=== PATIENT | female | born 1980 | race Caucasian/White ===

== ENCOUNTER 2016-05-20 09:30 | Emergency (ER) | payer OTHER ==
[2016-05-20 10:01] VITALS: BP 137/89
--- NOTE | 2016-05-20 10:33 | UC ---
Respiratory Complaint HPI - HPI Summary HPI Summary: coughing non-stop. Was ill with "cold" for about 3 weeks, felt like she was starting to get better, then a week ago got worse. Now with fever, aches, chills , mild ST, sinus congestion and pressure - History of Current Complaint Chief Complaint: UCRespiratory Stated Complaint: COUGH FEVER SINUS ISSUE Time Seen by Provider: 05/20/16 10:15 Hx Obtained From: Patient Hx Last Menstrual Period: 2.5 weeks ago Onset/Duration: Sudden Onset Timing: Constant Severity Initially: Mild Severity Currently: Moderate Character: Cough: Productive - occasional yellow phlegm, mainly cough is dry Aggravating Factors: Exertion, Recumbent Position Alleviating Factors: Nothing Associated Signs And Symptoms: Positive: Fever, Chills, Pleuritic Chest Pain, URI, Nasal Congestion, Hoarseness, Sinus Discomfort. Negative: Wheezing, Hemoptysis, Dizziness, Calf Pain - Risk Factors Pulmonary Embolism Risk Factors: Negative Cardiac Risk Factors: Negative Pseudomonas Risk Factors: Negative Tuberculosis Risk Factors: Negative - Allergies/Home Medications Allergies/Adverse Reactions: Allergies Allergy/AdvReac Type Severity Reaction Status Date / Time SHELLFISH Allergy Hives Uncoded 05/20/16 10:01 Home Medications: Home Medications ALPRAZolam TAB* [Xanax TAB*] 1 tab PO PRN 05/20/16 [History] Aleve PRN 05/20/16 [History] Amphetamine MIXED SALT TAB* [Adderall TAB*] 10 mg PO BID 05/20/16 [History Confirmed 05/20/16] Ibuprofen TAB* [Advil TAB*] 400 mg PO PRN 05/20/16 [History] Mucinex 05/20/16 [History] Sertraline* [Zoloft*] 1 tab PO BEDTIME 05/20/16 [History Confirmed 05/20/16] traZODone TAB* [Desyrel TAB*] 1 tab PO BEDTIME 05/20/16 [History Confirmed 05/20] PMH/Surg Hx/FS Hx/Imm Hx Respiratory History Of: Reports: Asthma - as a child Psychological History Of: Reports: Anxiety, Depression - Surgical History Surgical History: None - Family History Known Family History: Positive: Cardiac Disease - mother Family History: FHx of [place] - maternal - Social History Occupation: Employed Full-time Lives: With Family Alcohol Use: Weekly Alcohol Amount: couple times a week Substance Use Type: None Smoking Status (MU): Light Every Day Tobacco Smoker Amount Used/How Often: 2-3 cigs per day Length of Time of Smoking/Using Tobacco: 22 years Household Exposure Type: Cigarettes Review of Systems Constitutional: Negative Skin: Negative Eyes: Negative ENT: Sore Throat, Nasal Discharge Respiratory: Cough Cardiovascular: Negative Gastrointestinal: Negative Genitourinary: Negative Motor: Negative Neurovascular: Negative Musculoskeletal: Myalgia Neurological: Headache Psychological: Negative All Other Systems Reviewed And Are Negative: Yes Physical Exam Triage Information Reviewed: Yes Appearance: Well-Appearing, No Pain Distress, Well-Nourished Vital Signs: Initial Vital Signs Temp 98.3 F 05/20/16 09:52 Pulse 96 05/20/16 09:52 Resp 18 05/20/16 09:52 BP 137/89 05/20/16 09:52 Pulse Ox 98 05/20/16 09:52 Vital Signs Reviewed: Yes Eye Exam: Normal ENT: Positive: Pharynx normal, Nasal congestion, Nasal drainage, TMs normal, Muffled/hoarse voice - hoarse Neck exam: Normal Respiratory Exam: Normal Respiratory: Positive: Lungs clear, Normal breath sounds, No respiratory distress, No accessory muscle use, Other: - very frequent harsh, dry cough. Can' t take a breath without coughing Cardiovascular Exam: Normal Musculoskeletal Exam: Normal Neurological Exam: Normal Psychological Exam: Normal Skin Exam: Normal UC Diagnostic Evaluation - Laboratory O2 Sat by Pulse Oximetry: 98 Respiratory Course/Dx - Differential Dx/Diagnosis Differential Diagnosis/HQI/PQRI: Bronchitis, Lower Resp Infection, Sinusitis Provider Diagnoses: bronchitis Discharge - Discharge Plan Condition: Stable Disposition: HOME Prescriptions: Albuterol HFA INHALER* [Ventolin HFA Inhaler*] 1 - 2 puff INH Q4H PRN #1 mdi PRN Reason: cough, wheezing Clarithromycin TAB* [Biaxin TAB*] 500 mg PO BID #20 tab Hydrocodone W/ Homatropine [Hydromet 5-1.5 mg/5Ml] 1 teasp PO TID PRN #100 ml MDD 15ml PRN Reason: Cough Patient Education Materials: Acute Bronchitis (ED) Forms: *Work Release Referrals: No Primary Care Phys,NOPCP [Primary Care Provider] -
== END 2016-05-20 10:39 | disposition home or self-care (01) ==
LOC: UCEAST 09:30
DX: J40 Bronchitis, not specified as acute or chronic (principal); F41.9 Anxiety disorder, unspecified; F32.9 Major depressive disorder, single episode, unspecified; F17.210 Nicotine dependence, cigarettes, uncomplicated
CPT/HCPCS: 99212; G0463

== ENCOUNTER 2016-10-22 07:17 | Emergency (ER) | payer MEDICAID, OTHER ==
[2016-10-22 07:36] VITALS: BP 122/82
--- NOTE | 2016-10-22 08:16 | UC ---
zachary Aponte Timothy, scribed for Elizabeth García MD on 10/22/16 at 0803 . Skin Complaint HPI - HPI Summary HPI Summary: Ciara Alvarenga is a 36 yo female presenting to [facility] with rash on her upper RLE, first noted 10/16/16, getting larger and pruritic, causing 3/10 pain, concerned for tick bite. She states that she has been in tick-infested areas recently. Her is present in room. She states that the area has gotten slightly larger over the past week. She denies any N/V, fevers, chills, or other rashes. She states she has been bruising easily in the past 2 weeks. She denies any self-medication. Her MHx includes asthma, depression, anxiety, tobacco use. Pt medication list reviewed this visit. - History of Current Complaint Time Seen by Provider: 10/22/16 08:04 Stated Complaint: TICK BITE Hx Obtained From: Patient Hx Last Menstrual Period: 09/13/16 Onset/Duration: Sudden Onset, Lasting Days, Still Present Skin Exposure Onset/Duration: Days Ago Timing: Constant Onset Severity: Moderate Current Severity: Moderate Pain Intensity: 3 Pain Scale Used: 0-10 Numeric Location: Other - upper RLE Character: Pruritus, Pain Associated Signs & Symptoms: Positive: Rash. Negative: Nausea, Vomiting, Fever , Chills - Allergy/Home Medications Allergies/Adverse Reactions: Allergies Allergy/AdvReac Type Severity Reaction Status Date / Time SHELLFISH Allergy Hives Uncoded 05/20/16 10:01 Review of Systems Constitutional: Negative Skin: Other - tick bite upper RLE Eyes: Negative ENT: Negative Respiratory: Negative Cardiovascular: Negative Gastrointestinal: Negative Genitourinary: Negative Motor: Negative Neurovascular: Negative Musculoskeletal: Negative Neurological: Negative Psychological: Negative All Other Systems Reviewed And Are Negative: Yes PMH/Surg Hx/FS Hx/Imm Hx Respiratory History: Asthma Psychological History: Anxiety, Depression - Surgical History Surgical History: None - Family History Known Family History: Positive: Cardiac Disease - mother, Hypertension, Other - psoriatic arthritis, celiac disease Family History: FHx of [place] - maternal - Social History Alcohol Use: Weekly Alcohol Amount: couple times a week Substance Use Type: None Smoking Status (MU): Light Every Day Tobacco Smoker Amount Used/How Often: 5-10 cig per day Length of Time of Smoking/Using Tobacco: 22 years Household Exposure Type: Cigarettes Physical Exam Triage Information Reviewed: Yes Vital Signs: Initial Vital Signs Temp 97.9 F 10/22/16 07:28 Pulse 78 10/22/16 07:28 Resp 18 10/22/16 07:28 BP 122/82 10/22/16 07:28 Pulse Ox 100 10/22/16 07:28 Vital Signs Reviewed: Yes Course/Dx - Course Course Of Treatment: Ciara Alvarenga is a 36 yo female presenting to [facility] with rash on her upper RLE, first noted 10/16/16, getting larger and pruritic, causing 3/10 pain, concerned for tick bite. Pt medication list reviewed this visit. Pt was advised as to differentials and possible courses of Tx. Pt requests diflucan with any ABx Rx. She was advised to use hydrocortisone on the afflicted area. After clinical examination, she will be discharged home with RLE cellulitis with appropriate instructions and follow up. - Differential Diagnoses - Skin Complaint Differential Diagnoses: Cellulitis, Local Allergic Reaction, Tick Born Illness - Diagnoses Provider Diagnoses: cellulitis RLE Discharge - Discharge Plan Condition: Stable Disposition: HOME Patient Education Materials: Cellulitis (ED) Referrals: [facility] [Outside] - If Needed Additional Instructions: Please follow up with the primary care physician provided regarding your visit to urgent care today. Return to urgent care or the emergency department with any new or recurring symptoms. The documentation as recorded by the zachary lawrence Timothy accurately reflects the service I personally performed and the decisions made by me, Elizabeth García MD.
== END 2016-10-22 08:20 | disposition home or self-care (01) ==
LOC: UCEAST 07:17
DX: L03.113 Cellulitis of right upper limb (principal)
CPT/HCPCS: 99212; G0463

== ENCOUNTER 2017-08-21 11:40 | Emergency (ER) | payer BC, OTHER ==
[2017-08-21 12:53] VITALS: BP 122/84
[2017-08-21] MEDS ORDERED: Tetan/Diph/Pertus SYR(Tdap)* 0.5 ML SYR(BOOSTRIX) use SYR IM ONE (13:17)
--- NOTE | 2017-08-21 14:07 | ED ---
Laceration/Wound HPI - HPI Summary HPI Summary: Patient is a 36-year-old female presenting to the with laceration to the plantar surface of the left great toe. She sustained an injury after stepping on glass last evening. Bleeding was well controlled [employer]. She was able to wash the area well, wrap with gauze. Tetanus is not up-to-date. She denies any blood thinners. Denies any redness or warmth to the area. She states she has been otherwise well. Denies any other injuries. - History of Current Complaint Stated Complaint: TOE LAC Time Seen by Provider: 08/21/17 13:04 Hx Obtained From: Patient Hx Last Menstrual Period: 07/05/17 Mechanism of Injury: Sharp/Blunt Trauma Onset/Duration: Sudden Onset Aggravating: Movement Alleviating: Compression Timing: Constant Onset Severity: Mild Current Severity: Mild Pain Intensity: 5 Pain Scale Used: 0-10 Numeric Associated Signs & Symptoms: Negative Related Hx: Dominant Hand (Right) - Allergy/Home Medications Allergies/Adverse Reactions: Allergies Allergy/AdvReac Type Severity Reaction Status Date / Time SHELLFISH Allergy Hives Uncoded 08/21/17 12:44 PMH/Surg Hx/FS Hx/Imm Hx Previously Healthy: Yes Respiratory History: Reports: Hx Asthma - as a child Psychiatric History: Reports: Hx Anxiety, Hx Depression - Immunization History Hx Pertussis Vaccination: No Immunizations Up to Date: Unable to Obtain/Confirm Infectious Disease History: Yes Infectious Disease History: Reports: Hx Shingles Denies: History Other Infectious Disease, Traveled Outside the [place] in Last 30 Days - Family History Known Family History: Positive: Cardiac Disease - mother, Hypertension, Other - psoriatic arthritis, celiac disease with MRSA Family History: FHx of [place] - maternal - Social History Occupation: Employed Full-time Lives: With Family Alcohol Use: Weekly Alcohol Amount: couple times a week Hx Substance Use: No Substance Use Type: Reports: None Hx Tobacco Use: Yes Smoking Status (MU): Light Every Day Tobacco Smoker Amount Used/How Often: 5-10 cig per day Length of Time of Smoking/Using Tobacco: 22 years Review of Systems Constitutional: Negative Negative: Fever, Chills, Fatigue, Skin Diaphoresis ENT: Negative Cardiovascular: Negative Respiratory: Negative Negative: Arthralgia, Myalgia Positive: Other - laceration to the plantar surface of the left great toe Neurological: Negative Psychological: Normal All Other Systems Reviewed And Are Negative: Yes Physical Exam Triage Information Reviewed: Yes Vital Signs On Initial Exam: Initial Vitals Temp Pulse Resp BP Pulse Ox 98.7 F 85 18 122/84 100 08/21/17 12:46 08/21/17 12:46 08/21/17 12:46 08/21/17 12:46 08/21/17 12:46 Vital Signs Reviewed: Yes Appearance: Positive: Well-Appearing, No Pain Distress, Well-Nourished Skin: Positive: Warm, Skin Color Reflects Adequate Perfusion, Other - laceration Head/Face: Positive: Normal Head/Face Inspection Eyes: Positive: EOMI, AMANDA Neck: Positive: Supple, No Lymphadenopathy Respiratory/Lung Sounds: Positive: Clear to Auscultation, Breath Sounds Present Cardiovascular: Positive: RRR Musculoskeletal: Positive: Normal, Strength/ROM Intact Neurological: Positive: Speech Normal Psychiatric: Positive: Normal, Affect/Mood Appropriate AVPU Assessment: Alert Diagnostics - Vital Signs Vital Signs Temp Pulse Resp BP Pulse Ox 08/21/17 12:46 98.7 F 85 18 122/84 100 - Laboratory Lab Statement: Any lab studies that have been ordered have been reviewed, and results considered in the medical decision making process. Laceration Repair Course/Dx - Course Course Of Treatment: During the course, the patient is evaluated for laceration of the left great toe. On examination, there is a 1.7 cm vertical laceration of the left plantar surface of the great toe. Depth appears to be 0.2 cm. The edges are well approximated. Bleeding is well-controlled [employer]. This does not appear to be requiring sutures for repair. Adhesive applied. Steri-Strips applied. Gauze wrapped. Tetanus updated. - Differential Dx Differental Diagnoses: Joint Infection, Laceration, Puncture Wound, Tendon Laceration - Clinical Impression Provider Diagnoses: Laceration Discharge - Sign-Out/Discharge Documenting (check all that apply): Discharge/Admit/Transfer - Discharge Plan Condition: Stable Disposition: HOME Patient Education Materials: Laceration (ED) Referrals: Ja Valencia MD [Primary Care Provider] - Additional Instructions: Keep the area covered x 24 hours Then you may take off the outside bandage but keep steri strips applied You may then get wet but do not scrub the area Steri strips - keep applied x 5 days - you may add more as needed Tetanus was updated - Billing Disposition and Condition Condition: STABLE Disposition: HOME
== END 2017-08-21 14:01 | disposition home or self-care (01) ==
LOC: UCEAST 11:40
DX: S91.112A Laceration without foreign body of left great toe without damage to nail, initial encounter (principal); F17.210 Nicotine dependence, cigarettes, uncomplicated; Z91.013 Allergy to seafood; W25.XXXA Contact with sharp glass, initial encounter; Y92.9 Unspecified place or not applicable
CPT/HCPCS: 12001; 90471; 90715; 99211; G0463

== ENCOUNTER 2017-08-24 14:35 | Emergency (ER) | payer BC ==
[2017-08-24 15:09] VITALS: BP 141/98
--- NOTE | 2017-08-24 15:10 | UC ---
Laceration HPI - HPI Summary HPI Summary: 36 y/o female presents to the urgent care c/o laceration on left great toe s/p stepping on a glass. Laceration is in the plantar surface of the left great toe and was treated two days ago here at the clinic w/ skin adhesive and steri- strips. Yesterday steri-strips came off when she wet her feet yesterday. Today she has mild redness around the wound. Pain is dull 3/10. Pt denies fever , however her Temp is usually low and this morning tem was 99F. Pt denies numbness or tingling sensation over the toe, foot pain, calf pain, SOB, chest pain, abdominal pain, N/V/D. Pt was given Tdap at the clinic 2 days ago. - History Of Current Complaint Chief Complaint: UCLowerExtremity Stated Complaint: Cut on toe Time Seen by Provider: 08/24/17 15:09 Hx Obtained From: Patient Hx Last Menstrual Period: 07/05/17 Laceration Location: Foot - left great toe laceration Mechanism Of Injury: Sharp Trauma Onset/Duration: Sudden Onset, Lasting Days - 3 days, Still Present, Worse Since - yesterday Severity: Mild Pain Intensity: 3 Pain Scale Used: 0-10 Numeric Aggravating Factors: Movement Related History: Dominant Hand Right - Allergies/Home Medications Allergies/Adverse Reactions: Allergies Allergy/AdvReac Type Severity Reaction Status Date / Time SHELLFISH Allergy Hives Uncoded 08/24/17 15:10 Home Medications: Home Medications Ibuprofen TAB* [Advil TAB*] 200 mg PO Q6H PRN 08/24/17 [History Confirmed ] PMH/Surg Hx/FS Hx/Imm Hx Previously Healthy: Yes Other Endocrine History: shingles Respiratory History: Asthma Psychological History: Anxiety, Depression - Surgical History Surgical History: None - Family History Known Family History: Positive: Cardiac Disease - mother, Hypertension, Other - psoriatic arthritis, celiac disease with MRSA Family History: FHx of [place] - maternal - Social History Occupation: Employed Full-time Lives: With Family Alcohol Use: Weekly Alcohol Amount: couple times a week Substance Use Type: None Smoking Status (MU): Light Every Day Tobacco Smoker Amount Used/How Often: 5-10 cig per day Length of Time of Smoking/Using Tobacco: 22 years Household Exposure Type: Cigarettes Review of Systems Constitutional: Negative Skin: Other - left great toe laceration w/ mild swelling Eyes: Negative ENT: Negative Respiratory: Negative Cardiovascular: Negative Gastrointestinal: Negative Genitourinary: Negative Motor: Negative Neurovascular: Negative Musculoskeletal: Other: - left great toe pain s/p laceration Neurological: Negative Psychological: Negative Is Patient Immunocompromised?: No All Other Systems Reviewed And Are Negative: Yes Physical Exam - Summary Physical Exam Summary: Vital Signs Reviewed: Yes General: well developed, well nourished female sitting in the examining table w/ o any apparent distress Eye Exam: Normal Eyes: Positive: Conjunctiva Clear - PERRLA, EOMI, fundi grossly normal ENT: Positive: Normal ENT inspection, Hearing grossly normal, Pharynx normal, TMs normal Neck: Positive: Supple, Nontender, No Lymphadenopathy Respiratory: Positive: Chest non-tender, Lungs clear, Normal breath sounds, No respiratory distress Cardiovascular: Positive: RRR, No Murmur, Pulses Normal, Brisk Capillary Refill Abdomen Description: Positive: Nontender, No Organomegaly, Soft. Negative: CVA Tenderness (R), CVA Tenderness (L) Bowel Sounds: Positive: Present Musculoskeletal: Positive: Strength Intact, ROM Intact, No Edema Neurological: Positive: Alert, Muscle Tone Normal Psychological Exam: Normal Skin: Positive: a superficial linear laceration on plantar aspect of the left great toe about 1.7cm w/ surrounding erythema and warm to touch, tender to palpation w/ mild swelling. no foreign body observed. FROM of left toe and left foot, sensation intact, capillary refill brisk, and pulses WNL. Triage Information Reviewed: Yes Vital Signs: Initial Vital Signs Temp 98.1 F 08/24/17 15:04 Pulse 107 08/24/17 15:04 Resp 16 08/24/17 15:04 BP 141/98 08/24/17 15:04 Pulse Ox 98 08/24/17 15:04 Laceration Repair - Laceration Repair 1 Description: Linear Laceration Size After Repair: Length (cm) - 1.7 Modified For Repair: No Cleansing Completed Via Routine Prep: Yes Irrigation With Pressure Irrigation Device: Yes Closure Material: SteriStrips - 5 Suture Of: Skin Laceration Course/Dx - Course/Dx Course Of Treatment: 36 y/o female presents to the urgent care c/o laceration on left great toe s/p stepping on a glass. Laceration is in the plantar surface of the left great toe and was treated two days ago here at the clinic w / skin adhesive and steri-strips. Yesterday steri-strips came off when she wet her feet yesterday. Today she has mild redness around the wound. Pain is dull 3/10. Pt denies fever, however her Temp is usually low and this morning tem was 99F. Pt denies numbness or tingling sensation over the toe, foot pain, calf pain, SOB, chest pain, abdominal pain, N/V/D. Pt was given Tdap at the clinic 2 days ago.Hx obtained. Pt w/ a superficial laceration on plantar aspect of the left great toe about 1.7cm w/ surrounding erythema and warm to touch, tender to palpation w/ mild swelling.Wound cleaned and Bacitracin ointment applied. laceration closed w/ steristrips, and sterile dressing applied. Pt Rx Keflex PO and Bacitracin oint. Fluconazole Po as per Pt request since Pt ususally develops yeast infection after ABx Tx. Pt's BP is elevated today advised to decrease salt in diet, monitor BP and f/u with PCP for further management. D/C instructions explained. Pt understood and agreed w/ plan of care. - Differential Dx - Laceration/Wound Differental Diagnoses: Abrasion, Cellulitis, Dehiscence, Healing Wound, Laceration, Puncture Wound Provider Diagnoses: 1- Left first toe wound infection s/p laceration. 2- elevated BP w/o Hx of HTN Discharge - Sign-Out/Discharge Documenting (check all that apply): Discharge/Admit/Transfer - D/c home - Discharge Plan Condition: Stable Disposition: HOME Prescriptions: Bacitracin OINTMENT* 1 applic TOPICAL BID #1 tube Cephalexin CAP* [Keflex CAP*] 500 mg PO QID #28 cap Fluconazole [Fluconazole 150 mg tab] 150 mg PO ONCE #1 tablet Patient Education Materials: Wound Infection (DC), Low-Sodium Diet (ED) Referrals: Ja Valencia MD [Primary Care Provider] - 3 Days Additional Instructions: 1-Please take full course of antibiotic to avoid resistance. 2- Keep wound clean and dry and avoid excessive movement w/ your toe or standing for long periods of time 3- Apply Bacitracin oint as directed . 4-Take Ibuprofen or Tylenol PO q6-8hrs prn for pain or swelling. 5- If you develop fever or redness around your finger despite the antibiotic please go to the ER immediately or return to the Urgent care. 6-Your BP is elevated today. please decrease salt in your diet, monitor BP and if it continues to be elevated please f/u with your PCP for further management - Billing Disposition and Condition Condition: STABLE Disposition: HOME
== END 2017-08-24 15:45 | disposition home or self-care (01) ==
LOC: UCEAST 14:35
DX: S91.112D Laceration without foreign body of left great toe without damage to nail, subsequent encounter (principal); L08.9 Local infection of the skin and subcutaneous tissue, unspecified; W25.XXXD Contact with sharp glass, subsequent encounter; R03.0 Elevated blood-pressure reading, without diagnosis of hypertension; F17.210 Nicotine dependence, cigarettes, uncomplicated
CPT/HCPCS: 12001; 99212; G0463